=== PATIENT | male | born 1990 | race Caucasian/White ===

== ENCOUNTER 2021-04-27 05:55 | Emergency (ER) | payer MEDICAID ==
[~2021-04-27] VITALS: Ht 182.9 cm; Wt 83.9 kg
[2021-04-27 05:55] VITALS: BP 144/87
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
--- NOTE | 2021-04-27 05:55 | NUR ---
PT BIBA ALS. TAKEN TO BED 4. DR. MARTIN EXAMINING PATIENT.
--- NOTE | 2021-04-27 06:00 | NUR ---
Dr. Sheehan examining patient.
--- NOTE | 2021-04-27 06:15 | NUR ---
PT UNABLE TO PROVIDE URINE AT THIS TIME. PER PT WILL ATTEMPT IN A LITTLE WHILE.
[2021-04-27 06:25] LABS: BASOPHILS % (AUTO) 0.4 % (0.0-2.0); EOSINOPHILS # (AUTO) 0.2 K/uL (0-0.4); EOSINOPHILS % (AUTO) 2.2 % (0.0-4.0); HEMATOCRIT 44.1 % (36-52); HEMOGLOBIN 14.9 g/dL (12.0-18.0); LYMPHOCYTES # (AUTO) 1.9 K/uL (2.0-11.5); LYMPHOCYTES % (AUTO) 28.4 % (20.5-51.1); MEAN CORPUSCULAR HEMOGLOBIN 32 pg (27-31); MEAN CORPUSCULAR HGB CONC 34 g/dL (33-37); MEAN CORPUSCULAR VOLUME 93.4 fL (80-94); MONOCYTES # (AUTO) 0.6 K/uL (0.8-1.0); MONOCYTES % (AUTO) 8.7 % (1.7-9.3); NEUTROPHILS # (AUTO) 4.1 K/uL (1.8-7.7); NEUTROPHILS % (AUTO) 60.3 % (42.2-75.2); PLATELET COUNT (AUTO) 186 K/uL (140-450); RED BLOOD CELL COUNT(AUTO) 4.72 MIL/uL (4.20-6.10); RED CELL DISTRIBUTION WIDTH 12.1 % (11.6-13.7); WHITE BLOOD COUNT (AUTO) 6.8 K/uL (4.8-10.8)
[2021-04-27 06:41] LABS: ALBUMIN 3.8 g/dL (3.4-5.0); ANION GAP 10.5 (8-16); ASPARTATE AMINOTRANSFERASE 78 U/L (15-37); CARBON DIOXIDE 30.7 mmol/L (21-32); CHLORIDE 106 mmol/L (98-107); CREATININE 1.1 mg/dL (0.6-1.3); GFR ARICAN-AMERICAN 101 mL/min (>90); GLUCOSE 145 mg/dL (74-106); POTASSIUM 4.2 mmol/L (3.5-5.1); SODIUM SERUM 143 mmol/L (136-145); TOTAL BILIRUBIN 0.5 mg/dL (0.0-1.0); UREA NITROGEN, BLOOD 15 mg/dL (7-18)
[2021-04-27 06:42] LABS: SALICYLATE < 2.8 mg/dL (2.8-20.0)
[2021-04-27 06:43] LABS: ACETAMINOPHEN < 0.5 ug/ml (10-30)
--- NOTE | 2021-04-27 06:45 | NUR ---
PT VOIDED 350CC OF NIESHA COLORED URINE. SAMPLE SENT TO LAB.
--- NOTE | 2021-04-27 07:16 | NUR ---
Pt report given to FAROOQ ONEILL. Transfer of care at this time.
--- NOTE | 2021-04-27 07:20 | NUR ---
RECEIVED REPORT FROM FAROOQ OLSON. ASSUMED CARE AT THIS TIME.
--- NOTE | 2021-04-27 07:45 | NUR ---
PATIENT APPEARS TO BE RESTING WITH EYES, ON BEDSIDE VERIFICATION SPECIALIST VSS. WILL CONTINUE TO MONITOR.
[2021-04-27 08:25] LABS: BARBITURATE, URINE NEGATIVE ng/ml (NEG <=200); BENZODIAZEPINE, URINE NEGATIVE ng/mL (NEG <=200); CANNABINOID, URINE POSITIVE ng/mL (NEG <=50); COCAINE, URINE NEGATIVE ng/mL (NEG <=300); OPIATE, URINE NEGATIVE ng/mL (NEG <=2000); PHENCYCLIDINE SCREEN,URINE NEGATIVE ng/mL (NEG <=25)
[2021-04-27] MEDS ORDERED: NALO4SPR NS (08:40)
[2021-04-27 08:59] VITALS: BP 125/75
--- NOTE | 2021-04-27 08:59 | NUR ---
Patient discharged with v/s stable. Written and verbal after care instructions ABOUT STIMULANT USE DISORDER-AMPHETHAMINES, OPIOID OVERDOSE given and explained. Patient alert, oriented and verbalized understanding of instructions. Ambulatory with steady gait. All questions addressed prior to discharge. ID band removed. Patient advised to follow up with PMD. Rx of NARCAN given. Patient educated on indication of medication including possible reaction and side effects. Opportunity to ask questions provided and answered.
== END 2021-04-27 08:59 | disposition home or self-care (01) ==
LOC: MED 05:55
DX: T40.411A Poisoning by fentanyl or fentanyl analogs, accidental (unintentional), initial encounter (principal); F15.10 Other stimulant abuse, uncomplicated; F12.10 Cannabis abuse, uncomplicated; F17.210 Nicotine dependence, cigarettes, uncomplicated; Z79.899 Other long term (current) drug therapy; Y92.89 Other specified places as the place of occurrence of the external cause
CPT/HCPCS: 36415; 80053; 80305; 85025; 99283; G0480; G0482